=== PATIENT | male | born 1995 | race Caucasian/White ===

== ENCOUNTER 2023-09-03 07:52 | Emergency (ER) | payer BC, SELFPAY ==
[2023-09-03 07:59] VITALS: BP 177/105; PULSE 97; RESP 20; TEMP 36.9; O2SAT 96
[2023-09-03 08:08] VITALS: BP 177/105; PULSE 97; RESP 20; TEMP 36.9; O2SAT 96
--- NOTE | 2023-09-03 08:31 | ED.GENADUL_ITS ---
Discharge Plan Disposition Patient Disposition: Home Condition: Good Discharge Details Clinical Impression: URI (upper respiratory infection), Cough ED Provider: Jeni Cordova Home Meds and New Rx's Prescriptions: New benzonatate 200 mg capsule 200 mg PO TID PRN (Reason: cough) Qty: 14 0RF Discharge Instructions Instructions: Albuterol (By breathing), Upper Respiratory Infection (ED), Acute Cough (ED) Additional Instructions: Your flu and COVID testing were negative here today. Likely this is a different viral illness. Please encourage hydration. May use Tylenol and or ibuprofen as needed for discomfort or fevers. Please take as directed on the packaging. Prescribed Tessalon Perles to help with cough, this particular useful at night so you are able to get better sleep. Propping yourself up at night will also help with your postnasal drip. With your history of asthma, I am concerned that it may increase during illness and have prescribed you albuterol inhaler. Please use it with the spacer as instructed by nursing staff. We have also asked our care management team to assist with local primary care provider. You should hear from them this week regarding follow-up. Please wash your hands and wear mask when appropriate. If you develop increased work of breathing, inability stay hydrated or other new/worsening symptom please seek care urgently once again. Stand Alone Forms: Work Release HPI General Date/Time Provider Initiated Documentation: 09/03/23 07:53 . Limitations to Documentation: no limitations . Information obtained by: patient and RN notes reviewed . History of Present Illness 28 year old M presents to the emergency department with the chief complaint of URI with cough, chills, body aches, sore throat, runny nose, described as moderate, Quality is described as aching (diffuse body aches), Patient started experiencing this day(s) (4) and it has been constant. Medication improves symptom(s), No exacerbating factors reported . Patient notes cough, diaphoresis, fever/chills, malaise and shortness of breath (with cough); denies chest pain, headaches, loss of appetite, nausea/vomiting and rash. Patient did receive the following treatments prior to arrival, other (used rigo osborne previously) Related Data Home Medications Medication Instructions Recorded Confirmed benzonatate 200 mg capsule 200 mg PO TID PRN cough #14 caps 09/03/23 Previous Rx's Medication Instructions Recorded benzonatate 200 mg capsule 200 mg PO TID PRN cough #14 caps 09/03/23 Allergies Allergy/AdvReac Type Severity Reaction Status Date / Time No Known Allergies Allergy Unverified 09/03/23 08:04 General Stated Complaint: RespSymp DANIEL: 4 Review of Systems Constitutional Constitutional: Reports as per HPI and Denies headache(s) Eyes Eyes: Reports as per HPI, Denies eye discharge and Denies irritation ENT Ears, Nose, Mouth, and Throat: Reports as per HPI and Denies headache(s) Cardiovascular Cardiovascular: Reports as per HPI, Denies chest pain and Denies dyspnea Respiratory Respiratory: Reports as per HPI and Denies dyspnea Gastrointestinal Gastrointestinal: Reports as per HPI, Denies abdominal pain, Denies change in bowel habits, Denies nausea and Denies vomiting Integumentary/Breasts Skin/Breast: Reports as per HPI and Denies rash Neurologic Neurologic: Reports as per HPI and Denies headache(s) Exam Const General: cooperative, healthy appearing, comfortable, no acute distress, well developed and well groomed Nutritional Appearance: well nourished and overweight Orientation: alert and awake [facility] Head: normal to inspection, normocephalic and atraumatic Ears: hearing grossly normal bilaterally, external ears normal and TM's normal bilaterally General nose exam: external nose normal and nares normal Face and sinus: normal facial exam, sinuses nontender and face symmetric Mouth: oral mucosae normal, lip normal, tongue normal, oropharynx normal and moist mucous membranes Teeth and gingiva: dentition normal Throat: posterior oropharynx normal, tonsils normal and uvula midline Eyes General: appearance normal, both eyes and all related structures Neck Neck: normal visual inspection, full ROM and no lymphadenopathy Resp Effort & Inspection: normal respiratory effort, able to speak in complete sentences and no respiratory distress Auscultation: clear to auscultation bilaterally, no rales, no rhonchi and no wheezes Cardio Rate: regular rate Rhythm: regular rhythm Heart Sounds: S1 normal and S2 normal Skin General skin exam: no rashes or lesions noted Neuro General: patient alert and patient awake Cognition: normal cognition Speech: speech normal Gait: normal gait Course Vital Signs Vital signs: Vital Signs Temperature 36.9 C 09/03/23 07:59 Pulse 97 H 09/03/23 07:59 Respiratory Rate 20 09/03/23 07:59 Blood Pressure 177/105 H 09/03/23 07:59 Pulse Oximetry 96 09/03/23 07:59 Temperature 36.9 C 09/03/23 08:08 Temperature Source Oral 09/03/23 08:08 Pulse 97 H 09/03/23 08:08 Respiratory Rate 20 09/03/23 08:08 Respiratory Effort Normal 09/03/23 08:08 Blood Pressure 177/105 H 09/03/23 08:08 Blood Pressure Position Supine 09/03/23 07:59 Pulse Oximetry 96 09/03/23 08:08 Oxygen Delivery Method Room Air 09/03/23 07:59 Oxygen Flow Rate 0 09/03/23 07:59 Pain Level 8 09/03/23 08:08 Medical Decision Making Patient is a pleasant otherwise healthy 28-year-old male presenting today with chief complaint of upper respiratory infection with cough, congestion, postnasal drip, ear fullness, body aches for the past 4 days. Past medical history significant for asthma when he was a child which he states he grew out of. Patient is here for training but is going to be living in the area, will have care management assist with setting up local primary care. States that he can become short of breath with coughing. Has not noted any wheeze specifically. Denies chest pain. Denies any GI upset. Did not have his flu vaccine this year. No known sick contacts. On exam, patient appears nontoxic. Resting comfortably no acute distress. Was slightly tacky and hypertensive when he first came in, recheck. Lungs are clear. Patient is afebrile. History exam is more consistent with viral illness rather than bacterial pneumonia. Normal HEENT exam. Rapid COVID and flu are negative. Patient is also out of the window for treatment at this point. Will give Tylenol ibuprofen to help with bodyaches. As of the patient increase fluid intake. If he has has experienced some shortness of breath and reports history of asthma, will also give albuterol. He does not sound wheezy at this time but greater this may be contributing factor. Will also prescribe Tessalon Perles to help with cough. Work note given at patient's request. Return precautions were discussed. Discussed expected course. All his questions and concerns were addressed and he is in agreement this plan Quality:SDOH Health Related Social Needs: No Data to Display [facility] All Active Problems (Updated 09/03/23 @ 08:44 by GIGI Sahu) Cough (Acute) URI (upper respiratory infection) (Acute) Social History Smoking/Tobacco Use Status: Current-Occasional Tobacco Type: cigarettes Smoking risk assessment performed?: Yes Alcohol Intake: never Drug use: Never Substance use type: does not use Housing: apartment Do you feel safe at home: Yes Do you feel safe in your relationship?: Yes
[2023-09-03] MEDS: Acetaminophen 325 MG TAB 650 MG PO (08:39)
[2023-09-03] MEDS: Ibuprofen 600 MG TAB PO (08:40)
[2023-09-03] MEDS: Albuterol HFA 8 GM 60 PUFF INH IH (08:44)
[2023-09-03 09:01] VITALS: BP 123/89; PULSE 87; RESP 16; O2SAT 97
--- NOTE | 2023-09-03 10:06 | NUR.NOTE ---
Referral given to Care Managers for assistance establishing a primary care provider for a Routine Follow up.
== END 2023-09-03 08:58 | disposition home or self-care (01) ==
PROVIDERS: Emergency Provider Physician Assistant
DX: J02.9 Acute pharyngitis, unspecified (principal); F17.210 Nicotine dependence, cigarettes, uncomplicated; Z11.52 Encounter for screening for COVID-19
CPT/HCPCS: 87426; 99283